=== PATIENT | male | born 1980 | race Caucasian/White ===

== ENCOUNTER 2022-02-24 14:42 | Emergency (ER) | payer MEDICAID ==
[2022-02-24] MEDS ORDERED: KETOROLAC 60 MG/2 ML VIAL IM STA (14:59)
--- NOTE | 2022-02-24 15:08 | ED Physician Documentation ---
History of Present Illness - Stated complaint Stated Complaint: MALE - Chief complaint Chief Complaint: General - History obtained from History obtained from: Patient - History of Present Illness Timing: How many hours ago (5) Pain level max: 9 Pain level now: 9 - Additonal information Additional information: 41-year-old male was at work today when he developed right-sided testicular pain at approximately 10 AM. Gradually worsened throughout the day. Worse with standing, better with sitting. No swelling or redness. Denies any STI exposureNo abdominal pain. No back pain. No fevers. No chills. 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) - Present Medications Home Medications: Ambulatory Orders Medication Instructions Recorded Confirmed Levofloxacin [Levaquin] 750 mg PO DAILY 07/10/15 07/10/15 oxyCODONE [Roxicodone] 5 mg PO Q4-6H PRN #15 tablet 07/10/15 Oxycodone HCl/Acetaminophen 1 - 2 each PO Q6H PRN #14 tablet 02/24/22 [Percocet 5-325 mg Tablet] levoFLOXacin [Levofloxacin] 500 mg PO BID #20 tablet 02/24/22 - Allergies Allergies/Adverse Reactions: Allergies Allergy/AdvReac Type Severity Reaction Status Date / Time Sulfa (Sulfonamide Allergy Unknown Verified 02/24/22 14:48 Antibiotics) - Social History Does the pt smoke?: Yes Smoking Status: Current every day smoker Does the pt drink ETOH?: No Does the pt have substance abuse?: Yes PD ED PE NORMAL - Vitals Vital signs reviewed: Yes - General General: Alert and oriented X 3, No acute distress - HEENT HEENT: Moist mucous membranes - Neck Neck: Supple, no meningeal sign - Cardiac Cardiac: RRR - Respiratory Respiratory: No respiratory distress, Clear bilaterally - Abdomen Abdomen: Soft, Non tender, Non distended - Male Male : Other (Tender to palpation over the right epididymis. Normal testicular lie. Normal cremasteric reflex. No overlying skin changes) - Derm Derm: Warm and dry - Extremities Extremities: No edema - Neuro Neuro: Alert and oriented X 3 Results - Vitals Vitals: Vital Signs - 24 hr 02/24/22 02/24/22 02/24/22 14:44 15:30 16:00 Temperature 36.9 C Heart Rate 141 H 118 H 107 H Respiratory 14 15 27 H Rate Blood Pressure 167/89 H 138/76 H 135/81 H O2 Saturation 97 97 96 02/24/22 02/24/22 16:30 17:08 Temperature 36.8 C Heart Rate 109 H 101 H Respiratory 18 20 Rate Blood Pressure 140/76 H 140/86 H O2 Saturation 98 96 Oxygen O2 Source Room air - Labs Labs: Laboratory Tests 02/24/22 17:05 Urine Color DARK YELLOW Urine Clarity CLEAR Urine pH 5.5 Ur Specific [place] >=1.030 H Urine Protein TRACE Urine Glucose (UA) NEGATIVE Urine Ketones TRACE Urine Occult Blood NEGATIVE Urine Nitrite NEGATIVE Urine Bilirubin NEGATIVE Urine Urobilinogen 0.2 (NORMAL) Ur Leukocyte Esterase NEGATIVE Ur Microscopic Review NOT INDICATED Urine Culture Comments NOT INDICATED - Rads (name of study) Testicular US Radiology: Final report received, EMP read contemporaneously, See rad report PD MEDICAL DECISION MAKING - ED course Complexity details: reviewed results, re-evaluated patient, considered differential, d/w patient ED course: 41-year-old male presents the emergency department the right testicular pain. He does have a right hydrocele as well as incidental epididymal head cyst bilaterally. Possible epididymitis. We will treat him for epididymitis and placed on pain medication. He is not sexually active. We will have him follow- up with urology for further care. No evidence of torsion or intermittent torsion. Patient counseled regarding signs and symptoms for which I believe and urgent re-evaluation would be necessary. Patient with good understanding of and agreement to plan and is comfortable going home at this time This document was made in part using voice recognition software. While efforts are made to proofread this document, sound alike and grammatical errors may occur. IMPRESSION: 1. Right hydrocele. 2. Blood flow in the left epididymis appears prominent compared to the right. This could be seen in left epididymitis. 3. No varicocele. 4. No testicular mass. 5. Incidental epididymal head cysts bilaterally. Departure - Departure Disposition: 01 Home, Self Care Clinical Impression: Epididymitis, Cyst, epididymis, Right testicular pain Hydrocele Qualifiers: Hydrocele type: unspecified Qualified Code(s): N43.3 - Hydrocele, unspecified Condition: Good Instructions: ED Epididymitis Follow-Up: Juan Swan MD [Physician No Access] - Cynthia Swift MD [Physician No Access] - Yasmani Cash MD [Physician No Access] - Prescriptions: levoFLOXacin [Levofloxacin] 500 mg PO BID #20 tablet Oxycodone HCl/Acetaminophen [Percocet 5-325 mg Tablet] 1 - 2 each PO Q6H PRN #14 tablet PRN Reason: pain Comments: Your prescriptions were sent to the [facility] pharmacy in [place]. Please follow-up with your doctor for further care. Return if you worsen. You appear to have epididymitis today, but you also have epididymal cysts bilaterally and a hydrocele on the right side. Please follow-up with your doctor in 1 week for repeat evaluation. I have also listed several urologist that you can follow-up with. I am prescribing a short course of narcotic pain medication for you. These are potentially dangerous and addictive medications that should be used carefully. These medications may constipate you. Take an [id number] stool softener (docusate) twice daily with plenty of water while taking these medications. If you go 24 hours without a bowel movement, take [id number] miralax, per package instructions. Do not drink or drive while taking these medications. If you received narcotic or sedating medications while in the emergency department, do not drive for 24 hours. Store this medication in a safe, secure place and out of reach of children. It is a violation of federal law to give or sell this medication to another person or to use in a manner other than prescribed. The ED will not refill narcotic prescriptions, including prescriptions lost or stolen. To dispose of unwanted medications: 1. [facility] at [address] in [place] has a medication drop box. They accept prescription medications (in pill form) Wednesday through Wednesday 9:00 a.m. to 5:00 p.m. 2. The [facility] [employer] accepts prescription medications (in pill form only) for disposal year round. Call for more information. 3. Contact the [facility] for the next [facility] sponsored prescription drug collection event. , [phone], or [phone]; IMPRESSION: 1. Right hydrocele. 2. Blood flow in the left epididymis appears prominent compared to the right. This could be seen in left epididymitis. 3. No varicocele. 4. No testicular mass. 5. Incidental epididymal head cysts bilaterally. Discharge Date/Time: 02/24/22 17:05
--- NOTE | 2022-02-24 16:44 | Ultrasound Report ---
PROCEDURE: Testicle w/Doppler INDICATIONS: R testicular pain, sudden onset TECHNIQUE: Real-time scanning was performed of the scrotum and testicles, with image documentation. Color and p ulse Doppler interrogation was performed of both testicles. COMPARISON: CT abdomen and pelvis 07/10/2015. FINDINGS: Right: Testicle is normal in size at 5.7 x 3.2 x 2.4 cm, and homogenous in echotexture. Epididymis is normal in overall size and morphology. Heterogeneous echotexture. Epididymal head cyst measuring 0 .7 cm. A few additional small epididymal cysts. Small hydrocele. No varicoceles. Overlying scrotal s kin is normal in thickness. Left: Testicle is normal in size at 4.8 x 3.1 x 2 cm, and homogeneous in echotexture. Epididymis is normal in overall size and morphology. Heterogeneous echotexture. Multiple small epididymal head cys ts. Largest measuring 0.3 cm. No hydrocele or varicoceles. Overlying scrotal skin is normal in thick ness. Doppler: Blood flow in the testes appears symmetric. Blood flow in the left epididymis is mildly prom inent compared to the right. IMPRESSION: 1. Right hydrocele. 2. Blood flow in the left epididymis appears prominent compared to the right. This could be seen in l eft epididymitis. 3. No varicocele. 4. No testicular mass. 5. Incidental epididymal head cysts bilaterally. Reviewed by: Jesus Marcelino MD on 02/24/2022 4:43 PM PDT Approved by: Jesus Marcelino MD on 02/24/2022 4:43 PM PDT Station ID: [id number]
[2022-02-24 17:08] VITALS: BP 140/86
[2022-02-24 17:14] LABS: BILIRUBIN,URINE NEGATIVE (NEGATIVE); GLUCOSE, URINE (UA) NEGATIVE (NEGATIVE); KETONES,URINE (UA) TRACE mg/dL (NEGATIVE); LEUKOCYTE ESTERASE, URINE NEGATIVE (NEGATIVE); NITRITE,URINE NEGATIVE (NEGATIVE); OCCULT BLOOD,URINE NEGATIVE (NEGATIVE); PH,URINE 5.5 PH (5.0-7.5); PROTEIN,URINE TRACE mg/dL (NEGATIVE); UROBILINOGEN,URINE 0.2 (NORMAL) E.U./dL (NORMAL)
[2022-02-24 17:17] LABS: CLARITY,URINE CLEAR (CLEAR)
[2022-02-24 21:47] LABS: CHLAMYDIA TRACHOMATIS DNA NEGATIVE (NEGATIVE); NEISSERIA GONORRHOEAE DNA NEGATIVE (NEGATIVE)
== END 2022-02-24 17:05 | disposition home or self-care (01) ==
LOC: ED 14:42
DX: N43.3 Hydrocele, unspecified (principal); N45.1 Epididymitis; F17.200 Nicotine dependence, unspecified, uncomplicated
CPT/HCPCS: 81001; 81003; 87086; 87491; 87591; 87661; 93975; 96372; 99284